=== PATIENT | female | born 1980 | race Caucasian/White ===

== ENCOUNTER 2017-05-20 15:33 | Emergency (ER) | payer OTHER ==
[~2017-05-20] VITALS: Ht 167.6 cm; Wt 75.7 kg
[~2017-05-20 15:33] MED LIST: ADDERALL 20 MG20 MG PO; ATIVAN1 MG; BUSPIRONE HCL5 MG PO; FISH OIL300 MG; GABAPENTIN100 MG PO; LAMICTAL100 MG PO; M.V.I. ADULT10 ML; METOPROLOL TART50 MG PO; alegra
[2017-05-20] MEDS ORDERED: FLECAINIDE ACE100 MG (16:02)
[2017-05-20] MEDS ORDERED: NALTREXONE HCL50 MG PO (16:02)
[2017-05-20] MEDS ORDERED: TOPIRAMATE25 MG PO (16:02)
[2017-05-20] MEDS ORDERED: VALACYCLOVIR500 MG PO (16:02)
[2017-05-20] MEDS ORDERED: LORAZEPAM0.5 MG PO (16:02)
[2017-05-20] MEDS ORDERED: ASPIR 8181 MG PO (16:02)
[2017-05-20] MEDS ORDERED: HYOSCYAMINE0.125 MG (16:02)
[2017-05-20] MEDS ORDERED: DIATRIZOATE MEGL/DIATRIZOA SOD 30 ML BTL PO ONE (17:45)
[2017-05-20 18:07] LABS: BASOPHILS % 0.3 % (0.0-1.0); EOSINOPHILS # (AUTO) 0.1 (0.0-0.4); EOSINOPHILS % 1.4 % (0.0-6.0); HEMATOCRIT 37.5 % (34.2-44.1); HEMOGLOBIN 12.6 g/dL (12.0-16.0); LYMPHOCYTES # (AUTO) 1.8 (1.0-3.2); LYMPHOCYTES % 28.6 % (18.0-39.1); MEAN CORPUSCULAR HEMOGLOBIN 30.2 pg (28-32); MEAN CORPUSCULAR HGB CONC 33.6 g/dL (31-35); MEAN CORPUSCULAR VOLUME 89.9 fL (81-99); MONOCYTES # (AUTO) 0.6 (0.2-0.8); MONOCYTES % 9.9 % (4.4-11.3); NEUTROPHILS # (AUTO) 3.8 (2.1-6.9); NEUTROPHILS % 59.5 % (38.7-80.0); PLATELET COUNT 216 x10e3/uL (140-360); RED BLOOD COUNT 4.17 x10e6/uL (3.6-5.1); RED CELL DISTRIBUTION WIDTH 13.1 % (11.7-14.4)
[2017-05-20 18:19] LABS: ALANINE AMINOTRANSFERASE 13 IU/L (0-55); ALBUMIN/GLOBULIN RATIO 1.3 (0.8-2.0); ALKALINE PHOSPHATASE 56 IU/L (40-150); BLOOD UREA NITROGEN 20 mg/dL (7-26); BUN/CREATININE RATIO 20 (6-25); CALCIUM 9.3 mg/dL (8.4-10.2); CARBON DIOXIDE 25 mmol/L (22-29); CHLORIDE 107 mmol/L (98-107); CREATININE, SERUM 0.98 mg/dL (0.57-1.11); EST GLOMERULAR FILTRATION RATE > 60 ML/MIN (60-); GLUCOSE 98 mg/dL (74-118); LIPASE 32 U/L (8-78); SODIUM 140 mmol/L (136-145)
[2017-05-20] MEDS ORDERED: IOPAMIDOL 370 MG/ML 200 ML INFUS..BTL INJ ONE (18:54)
[2017-05-20] MEDS ORDERED: SODIUM CHLORIDE 0.9% 50ML 50 ML ONE (18:54)
[2017-05-20 19:14] LABS: BILIRUBIN,URINE NEGATIVE (NEGATIVE); KETONES,URINE NEGATIVE (NEGATIVE); LEUKOCYTE ESTERASE ,URINE NEGATIVE (NEGATIVE); NITRITE,URINE NEGATIVE (NEGATIVE); PROTEIN,URINE DIPSTICK NEGATIVE (NEGATIVE); URINE UROBILINOGEN 0.2 mg/dL (0.2 - 1)
[2017-05-20 19:15] LABS: CLARITY,URINE CLEAR (CLEAR); COLOR,URINE YELLOW (YELLOW)
[2017-05-20 19:34] LABS: AMORPHOUS SEDIMENT,URINE FEW (FEW); BACTERIA,URINE FEW /HPF; EPITHELIAL CELLS,URINE FEW /LPF; RBC,URINE 0-5 /HPF (0-5); WBC,URINE (MAN) 0-5 /HPF (0-5)
--- NOTE | 2017-05-20 19:43 | Diagnostic Imaging Report ---
EXAM: CT Abdomen and Pelvis WITH contrast INDICATION: Abdominal pain COMPARISON: None. TECHNIQUE: Abdomen and pelvis were scanned utilizing a multidetector helical scanner from the lung base to the pubic symphysis after administration of IV contrast. Coronal and sagittal reformations were obtained. Routine protocol was performed. Scan was performed when during portal venous phase. IV CONTRAST: 100 mL of Isovue-370 ORAL CONTRAST: Gastrografin RADIATION DOSE: Total DLP: 07.71 mGy*cm Estimated effective dose: (DLP x 0.015 x size factor) mSv COMPLICATIONS: None FINDINGS: LINES and TUBES: None. LOWER THORAX: Unremarkable HEPATOBILIARY: No focal hepatic lesions. No biliary ductal dilation. GALLBLADDER: No radio-opaque stones or sludge. No wall thickening. SPLEEN: No splenomegaly. PANCREAS: No focal masses or ductal dilatation. ADRENALS: No adrenal nodules KIDNEYS/URETERS: Kidneys enhance symmetrically. No hydronephrosis. No cystic or solid mass lesions. 3 mm stone in the interpolar renal collecting system of the left kidney GI TRACT: No abnormal distention, wall thickening, or evidence of bowel obstruction. There are diverticula within the colon without evidence of diverticulitis. Appendix is not clearly identified. There is however no fat stranding or adenopathy in the right lower quadrant to suggest appendicitis. PELVIC ORGANS/BLADDER: The uterus is absent. Bilateral ovaries are unremarkable. The left ovary contains a peripherally enhancing hyperdense cystic lesion measuring 2.4 cm in diameter compatible with a hemorrhagic cyst or corpus luteum cyst LYMPH NODES: No lymphadenopathy. VESSELS: Unremarkable. PERITONEUM / RETROPERITONEUM: No free air or fluid. BONES: Unremarkable. SOFT TISSUES: Unremarkable. IMPRESSION: 1. Left sided nephrolithiasis measuring 3 mm in diameter without hydronephrosis. 2. Left ovarian hemorrhagic cyst versus corpus luteum cyst. Signed by: Dr. Zeb Maldonado M.D. on 05/20/2017 7:39 PM
[2017-05-20 20:35] VITALS: BP 126/95
[2017-06-07] MEDS ORDERED: ALLEGRA ALLERG180 MG PO (15:24)
[2017-06-07] MEDS ORDERED: ATIVAN1 MG PO (15:25)
[2017-06-07] MEDS ORDERED: PANTOPRAZOLE SO40 MG PO (15:27)
== END 2017-05-20 20:42 | disposition home or self-care (01) ==
LOC: ER 15:33
DX: R10.84 Generalized abdominal pain (principal); R11.2 Nausea with vomiting, unspecified; G89.29 Other chronic pain; F31.9 Bipolar disorder, unspecified
CPT/HCPCS: 36415; 74177; 80053; 81001; 83690; 85025; 87086; 99284; Q9967

== ENCOUNTER → 2017-06-08 | Day surgery (SDC) | payer OTHER ==
[~2017-06-08] MED LIST changes: +ALLEGRA ALLERG180 MG PO; +ASPIR 8181 MG PO; +ATIVAN1 MG PO; +FENTANYL CITRATE/PF 100MCG/2 ML INJ ONE; +FLECAINIDE ACE100 MG; +HYOSCYAMINE SULFATE 0.5 MG/ML AMP ONE; +HYOSCYAMINE0.125 MG; +LIDOCAINE HCL 2% LOCAL INJ 5 ML SDV VIAL INJ ONE; +LORAZEPAM0.5 MG PO; +MIDAZOLAM HCL 5 MG/ML VIAL ONE; +NALTREXONE HCL50 MG PO; +PANTOPRAZOLE SO40 MG PO; +PROPOFOL IV EMULSION 10 MG/ML 50 ML VIAL ONE; +TOPIRAMATE25 MG PO; +VALACYCLOVIR500 MG PO
--- NOTE | 2017-06-08 12:43 | Operative Report ---
DATE OF PROCEDURE: June 08, 2017 REFERRING PHYSICIAN: Dr. Alejandro Kuhn. PROCEDURE PERFORMED: 1. Esophagogastroduodenoscopy with biopsies. 2. Colonoscopy with biopsies. INDICATIONS FOR ESOPHAGOGASTRODUODENOSCOPY: Upper abdominal pain, heartburn indigestion. INDICATIONS FOR COLONOSCOPY: Lower abdominal pain, alternating bouts of constipation and diarrhea. MEDICATION: Patient was done under MAC. Please see anesthesiologist's note. PROCEDURE: With the patient in the left lateral decubitus position, the flexible fiberoptic Olympus gastroscope was introduced into the esophagus under direct visualization without any difficulty. There was some patchy erythema noted in the distal esophagus. The scope was then advanced with ease into the stomach, and the mucosa overlying the antrum and the body revealed some patchy intense erythema and low-grade to moderate edema, and biopsies were obtained and sent to stain for H. pylori. The pylorus appeared to be of normal contour and shape, was intubated with ease, and the scope was advanced all the way to the 2nd portion of the duodenum. The scope was then withdrawn slowly, and biopsies were obtained from the proximal 2nd portion to rule out sprue. The mucosa overlying the duodenal bulb appeared to be within normal limits. The scope was then withdrawn back into the stomach and retroflexed, and the mucosa overlying the fundus and the cardia appeared to be within normal limits. The scope was then straightened out. The stomach was decompressed. The scope was subsequently withdrawn. Patient tolerated the procedure well. IMPRESSION: 1. Distal esophagitis. 2. Gastritis biopsied. Biopsies sent to stain for H. pylori. 3. Rule out sprue. PLAN: Follow up histology. Increase Protonix to 40 mg 1 p.o. a.c. b.i.d. Patient was then turned around and after adequate lubrication of the anal canal, a flexible fiberoptic Olympus colonoscope was inserted into the rectum with ease and advanced all the way to the cecum. Mucosa overlying the cecum appeared to be within normal limits. The ileocecal valve was intubated, and the scope was advanced into the terminal ileum. Biopsies were obtained. The scope was then withdrawn back into the colon. It was then withdrawn slowly. The mucosa overlying the cecum, ascending and the transverse as well as the descending appeared to be within normal limits. There was some patchy intense erythema and low-grade to moderate edema noted in the sigmoid and the rectum, and random biopsies were obtained. A single diverticulum was noted in the sigmoid colon. The scope was then retroflexed into the distal rectum and small internal hemorrhoids were noted, none of which was actively bleeding. The scope was then straightened out. The rectosigmoid area as well as the distal rectal area were decompressed. The scope was subsequently withdrawn. Patient tolerated procedure well. IMPRESSION: 1. Proctosigmoiditis, mild. 2. Diverticulosis, minimal, sigmoid colon. 3. Small internal hemorrhoids, none actively bleeding. PLAN: Follow up histology. Initiate Bentyl 10 mg one p.o. t.i.d. Start VSL#3 DS one p.o. b.i.d. Job#: [id number] EV cc:ALEJANDRO KUHN DO
== END | disposition home or self-care (01) ==
LOC: OR 08:51
PROVIDERS: ATTEND Internal Medicine Gastroenterology
DX: K29.70 Gastritis, unspecified, without bleeding (principal); K63.89 Other specified diseases of intestine; K20.9 Esophagitis, unspecified; K21.9 Gastro-esophageal reflux disease without esophagitis; K59.00 Constipation, unspecified; K57.30 Diverticulosis of large intestine without perforation or abscess without bleeding; K92.0 Hematemesis; K64.8 Other hemorrhoids; R63.4 Abnormal weight loss; G47.33 Obstructive sleep apnea (adult) (pediatric); I49.9 Cardiac arrhythmia, unspecified; F90.9 Attention-deficit hyperactivity disorder, unspecified type; F31.9 Bipolar disorder, unspecified; Z01.810 Encounter for preprocedural cardiovascular examination; Z87.891 Personal history of nicotine dependence; Z79.82 Long term (current) use of aspirin; Z68.26 Body mass index [BMI] 26.0-26.9, adult; Z80.0 Family history of malignant neoplasm of digestive organs
CPT/HCPCS: 43239; 45380; 93005; J1980; J2001; J2250

== ENCOUNTER → 2017-06-23 | Outpatient (CLI) | payer OTHER ==
[~2017-06-23] MED LIST changes: -FENTANYL CITRATE/PF 100MCG/2 ML INJ ONE; -HYOSCYAMINE SULFATE 0.5 MG/ML AMP ONE; -LIDOCAINE HCL 2% LOCAL INJ 5 ML SDV VIAL INJ ONE; -MIDAZOLAM HCL 5 MG/ML VIAL ONE; -PROPOFOL IV EMULSION 10 MG/ML 50 ML VIAL ONE
--- NOTE | 2017-06-23 18:52 | Diagnostic Imaging Report ---
PROCEDURE:GALLBLADDER ULTRASOUND COMPARISON:CT chest 05/04/15 INDICATIONS:RUQ PAIN, INDIGESTION, GERD FINDINGS: Multiple sagittal and axial images were obtained of the right upper quadrant of the abdomen. The liver measures 10.4 cm. the echotexture is mildly increased. No focal masses are identified. The liver contour is within normal limits. The portal vein is patent with hepatopetal flow measuring 0.8 cm in diameter. There is no intra or extrahepatic biliary duct dilation, with the common bile duct measuring 0.3 cm. The gallbladder is normal in appearance, without evidence for gallbladder stones or sludge. There is no gallbladder wall thickening or pericholecystic fluid. The sonographic Llamas's sign is negative. Visualized pancreas parenchyma is normal in echotexture without mass or ductal dilatation. The right kidney measures 13.1 cm in length. It is of normal echogenicity, without focal masses, hydronephrosis, or shadowing renal calculi. The aorta and IVC are unremarkable. No free fluid. CONCLUSION: Increased hepatic echotexture suggestive of hepatocellular dysfunction, most commonly steatosis. No hepatic mass. The remainder of the visualized structures are normal. Dictated by: Alen Mosher M.D. on 06/23/2017 at 18:59 Electronically approved by: Alen Mosher M.D. on 06/23/2017 at 18:59
== END ==
LOC: US 15:44
PROVIDERS: ATTEND Surgery
DX: R10.11 Right upper quadrant pain (principal); K30 Functional dyspepsia; K21.9 Gastro-esophageal reflux disease without esophagitis
CPT/HCPCS: 76705

== ENCOUNTER → 2017-10-17 | Outpatient (CLI) | payer OTHER ==
[~2017-10-17] MED LIST changes: +DIATRIZOATE MEGL/DIATRIZOA SOD 30 ML BTL PO ONE; +IOPAMIDOL 370 MG/ML 200 ML INFUS..BTL INJ ONE; +SODIUM CHLORIDE 0.9% 50ML 50 ML ONE
--- NOTE | 2017-10-17 16:50 | Diagnostic Imaging Report ---
PROCEDURE: CT ABDOMEN AND PELVIS WITH CONTRAST TECHNIQUE: The abdomen and pelvis were scanned utilizing a multidetector helical scanner from the diaphragm to the lesser trochanter after the IV administration of 100 cc of Isovue 370 and the oral administration of Gastroview. Coronal and sagittal multiplanar reformations were obtained. COMPARISON: None. INDICATIONS: LOWER ABDOMINAL PAIN, has worms in stool FINDINGS: LOWER THORAX: Unremarkable HEPATOBILIARY: No focal hepatic lesions. No biliary ductal dilatation. Gallbladder is unremarkable SPLEEN: No splenomegaly. PANCREAS: No focal masses or ductal dilatation. ADRENALS: No adrenal nodules. KIDNEYS/URETERS: Mild right pelvocaliectasis without mirta hydronephrosis. No hydroureter. Stable 3 mm nonobstructing calculus in the interpolar left kidney (series 2 image 25). No ureteral calculi, hydronephrosis, or obstruction. No solid enhancing masses. PELVIC ORGANS/BLADDER: Bladder is unremarkable. Uterus is absent. No adnexal masses. PERITONEUM / RETROPERITONEUM: No free air or fluid. LYMPH NODES: No lymphadenopathy. VESSELS: Unremarkable. GI TRACT: No bowel dilation or evidence of obstruction. No pericolonic inflammatory changes. A few scattered diverticula in the sigmoid colon, without diverticulitis. No intraluminal filling defects are identified in the opacified portions of the bowel. BONES AND SOFT TISSUES: No aggressive lytic lesions. Soft tissues are grossly unremarkable. IMPRESSION: 1. No acute abdominopelvic abnormalities. Specifically, no bowel dilation or obstruction, or intraluminal filling defects in the opacified portions. 2. Mild sigmoid diverticulosis, without diverticulitis. 3. Stable 3 mm nonobstructing calculus in the interpolar left kidney. No ureteral calculi, hydronephrosis, or obstruction. Mild right pelvocaliectasis. Fernando Wright M.D. Dictated by: Fernando Wright M.D. on 10/17/2017 at 16:51 Electronically approved by: Fernando Wright M.D. on 10/17/2017 at 16:51
== END ==
LOC: CT 14:37
PROVIDERS: ATTEND Internal Medicine Gastroenterology
DX: R10.9 Unspecified abdominal pain (principal)
CPT/HCPCS: 74177; Q9967

== ENCOUNTER → 2017-12-12 | Day surgery (SDC) | payer OTHER ==
[~2017-12-12] VITALS: Ht 167.6 cm; Wt 71.7 kg
[~2017-12-12] MED LIST changes: +ATORVASTATIN CA20 MG PO; +BENTYL10 MG/1 ML IV; -DIATRIZOATE MEGL/DIATRIZOA SOD 30 ML BTL PO ONE; +DOXYCYCLINE HY100 MG PO; -IOPAMIDOL 370 MG/ML 200 ML INFUS..BTL INJ ONE; +LIDOCAINE 1% W/EPINEPHRINE 20 ML VIAL ONE; +PROBIOTIC & AC1 EACH; -SODIUM CHLORIDE 0.9% 50ML 50 ML ONE; +TOPIRAMATE100 MG PO; +TRULANCE PO; +[UNRECOGNIZED DRUG - OTHER]
[2017-12-12 12:30] VITALS: BP 125/86
[2017-12-12 15:52] VITALS: BP 113/80
--- NOTE | 2017-12-12 16:28 | Operative Report ---
DATE OF PROCEDURE: December 12, 2017 INDICATIONS: Palpitations with possible atrial fibrillation. PROCEDURES PERFORMED: Insertable LINQ recorder. Left anterior chest was anesthetized using subcutaneous lidocaine. A Certess LINQ, serial number [id number], was inserted without complications. Skin approximated using Dermabond. Patient discharged home same day. No complications. Job#: [id number] EV
== END | disposition home or self-care (01) ==
LOC: CATH LAB 11:40
PROVIDERS: ATTEND Internal Medicine Interventional Cardiology
DX: R00.2 Palpitations (principal); Z79.82 Long term (current) use of aspirin
CPT/HCPCS: 33282; C1764

== ENCOUNTER 2018-05-08 20:12 | Emergency (ER) | payer BC, OTHER ==
[~2018-05-08] VITALS: Ht 167.6 cm; Wt 71.7 kg
[~2018-05-08 20:12] MED LIST changes: -LIDOCAINE 1% W/EPINEPHRINE 20 ML VIAL ONE
--- OUTSIDE RECORDS SUMMARY | 2018-05-08 20:15 | XMS REPORT | Clinical Summary ---
Author Author [facility] Organization [facility] Address Unknown Phone Unavailable Care Team Providers Care Scrap Sorter Name Role Phone Cody Stallworth MD PCP Allergies Comments Active Allergy Reactions Severity Noted Date Latex 01/19/2017 Medications End Date Status Medication Sig Dispensed Refills Start Date Active dextroamphetamine-ampheta Take 30 mg by 0 mine (ADDERALL) 30 mg mouth 2 (two) tablet times a day. Active flecainide (TAMBOCOR) 100 Take 100 mg 0 MG tablet by mouth 2 (two) times a day. Active lamoTRIgine (LaMICtal XR) Take 300 mg 0 300 mg tablet extended by mouth release 24hr daily. Active LORAZepam (ATIVAN) 0.5 MG Take 0.5 mg 0 tablet by mouth 2 (two) times a day. Active gabapentin (NEURONTIN) Take 300 mg 0 300 mg capsule by mouth daily. Active fexofenadine (EVAN) Take 180 mg 0 180 MG tablet by mouth daily. Active DOCOSAHEXANOIC ACID/EPA Take 1,200 mg 0 (FISH OIL ORAL) by mouth 2 (two) times a day. Active busPIRone (BUSPAR) 10 MG Take 10 mg by 0 tablet mouth 2 (two) times a day. Active metoprolol tartrate Take 25 mg by 0 (LOPRESSOR) 25 mg tablet mouth daily. Active aspirin (ECOTRIN) 81 MG Take 81 mg by 0 enteric coated tablet mouth daily. Active topiramate (TOPAMAX) 25 Take 25 mg by 0 MG tablet mouth 2 (two) times a day. Active acetylcysteine (NAC) 600 Take 600 mg 0 mg capsule by mouth 2 (two) times a day. Active valACYclovir (VALTREX) Take 500 mg 0 500 MG tablet by mouth as needed. Active MULTIVIT WITH Take by 0 CALCIUM,IRON,MIN (WOMEN'S mouth. DAILY MULTIVITAMIN ORAL) Active Problems Not on file Family History Medical History Relation Name Comments No Known Problems Brother No Known Problems Father No Known Problems Maternal Aunt Pancreatitis Maternal Grandfather No Known Problems Maternal Grandmother No Known Problems Maternal Uncle No Known Problems Mother No Known Problems Paternal Aunt Colon cancer Paternal Grandfather No Known Problems Paternal Grandmother No Known Problems Paternal Uncle No Known Problems Sister Diverticulitis Neg Hx Diverticulosis Neg Hx Relation Name Status Comments Brother Father Maternal Aunt Maternal Grandfather Maternal Grandmother Maternal Uncle Mother Paternal Aunt Paternal Grandfather Paternal Grandmother Paternal Uncle Sister Social History Date Tobacco Use Types Packs/Day Years Used Quit: 2012 Former Smoker Alcohol Use Drinks/Week oz/Week Comments No Sex Assigned at Date Recorded Not on file Industry Job Start Date Occupation Not on file Not on file Not on file Travel End Travel History Travel Start No recent travel history available. Last Filed Vital Signs Not on file Plan of Treatment Health Maintenance Due Date Last Done Comments MMR VACCINES (1982 Standard series) VARICELLA VACCINES (1994 2 - 2-dose adolescent series) CERVICAL CANCER SCREENING 2002 INFLUENZA VACCINE 01/17/2018 HEPATITIS B VACCINES Aged Out No longer eligible based on patient's age to complete this topic IPV VACCINES Aged Out No longer eligible based on patient's age to complete this topic MENINGOCOCCAL VACCINE Aged Out No longer eligible based on patient's age to complete this topic Results Not on fileafter 05/07/2017 Insurance Payer Benefit Subscriber ID Type Phone Address Plan / Group AETNA AETNA PPO xxxxxxxxxx PPO OPEN CHOICE Advance Directives Patient has advance care planning documents on file. For more information, akash sanchez contact: Chun Billingsley [address] [place] [address]
--- NOTE | 2018-05-08 22:13 | Diagnostic Imaging Report ---
ANKLE 3+ VIEWS LEFT HISTORY: Pain. Hit ankle 2 days ago. COMPARISON: None available. FINDINGS: Bones: No acute displaced fracture. Osseous alignment is within normal limits. Joints: The joint spaces are well-maintained. Soft tissues: The soft tissues appear unremarkable. IMPRESSION: No acute radiographic abnormality. Signed by: DR. Caesar Garcia MD on 05/08/2018 10:09 PM
[2018-05-08 22:50] VITALS: BP 119/87
== END 2018-05-08 22:54 | disposition home or self-care (01) ==
LOC: ER 20:12
DX: M25.472 Effusion, left ankle (principal); M25.572 Pain in left ankle and joints of left foot; W22.09XA Striking against other stationary object, initial encounter; Y92.003 Bedroom of unspecified non-institutional (private) residence as the place of occurrence of the external cause; F41.9 Anxiety disorder, unspecified; F31.9 Bipolar disorder, unspecified; Z86.73 Personal history of transient ischemic attack (TIA), and cerebral infarction without residual deficits
CPT/HCPCS: 93971; 99283

== ENCOUNTER → 2018-12-04 | Outpatient (CLI) | payer BC ==
[~2018-12-04] MED LIST changes: +IOPAMIDOL 370 MG/ML 200 ML INFUS..BTL INJ ONE; +SODIUM CHLORIDE 0.9% 50ML 50 ML ONE
[2018-12-04 17:45] LABS: BLOOD UREA NITROGEN 16 mg/dL (7-26); BUN/CREATININE RATIO 18 (6-25); CREATININE, SERUM 0.88 mg/dL (0.57-1.11); EST GLOMERULAR FILTRATION RATE > 60 ML/MIN (60-)
--- NOTE | 2018-12-04 18:27 | Diagnostic Imaging Report ---
CT chest pulmonary embolism protocol CPT code: 17965 INDICATION: Shortness of breath. Lower left chest pain ^[id number] ^[id number] ^SOB TECHNIQUE: Thin collimation axial images obtained through the level of the pulmonary arteries with additional imaging through the chest following the uneventful administration of 100 cc of low osmolar, nonionic intravenous contrast. Images reconstructed into coronal and sagittal MIPs for complete evaluation of the tortuous and overlapping pulmonary vascular structures and to reduce patient radiation dose. RADIATION DOSE: Total DLP: 551.4 mGy*cm Estimated effective dose: (DLP x 0.015 x size factor) mSv CTDIvol has been reviewed. It is below the limits set by the Radiation Protocol Committee (RPC). Dose reduction techniques used: Automated exposure control, adjustment of the mAs and/or kVp according to patient size, standardized low-dose protocol, and/or iterative reconstruction technique. COMPARISON: None. FINDINGS: Pulmonary artery: No filling defects are appreciated within the main, left, right, lobar or visualized segmental pulmonary arteries to suggest embolism. Aorta: The thoracic aorta is not aneurysmal. No evidence for dissection. Lymph nodes: No lymphadenopathy. Thyroid: Normal in size without mass in the visualized parenchyma.. Mediastinum: The heart is normal in size. No pericardial effusion. The esophagus is normal. Lungs: Right Lung: No mass or infiltrate. Left Lung: No mass or infiltrate. Trace focus of atelectasis in the posterior costophrenic angle. Airways: Clear Pleura: No pleural effusion or pleural based mass. Abdomen: Visualized portions demonstrate no evidence of mass or lymphadenopathy. There is a nonobstructing calculus in the upper pole of the left kidney measuring 6 mm. Bones: No focal osseous lesions. Soft tissues: Loop recorder device in the anterior left chest. IMPRESSION: 1. No evidence of pulmonary embolus or aortic dissection. 2. Trace amount of atelectasis in the left posterior costophrenic angle. Otherwise the lungs are normal. 3. Non-obstructive left intrarenal calculus. Findings given to VAL Napoles at the time of dictation. Confirmed. Signed by: Dr. Alen Mosher MD on 12/04/2018 6:23 PM
== END ==
LOC: CT 16:52
PROVIDERS: ATTEND Family Medicine
DX: R06.02 Shortness of breath (principal)
CPT/HCPCS: 36415; 71260; 82565; 84520; Q9967

== ENCOUNTER → 2023-10-13 | Outpatient (REF) | payer BC ==
[~2023-10-13] MED LIST changes: -IOPAMIDOL 370 MG/ML 200 ML INFUS..BTL INJ ONE; -SODIUM CHLORIDE 0.9% 50ML 50 ML ONE
== END ==
LOC: CT 15:39
PROVIDERS: ATTEND Family Medicine
DX: R10.9 Unspecified abdominal pain (principal); R79.89 Other specified abnormal findings of blood chemistry
CPT/HCPCS: 74176

== ENCOUNTER → 2024-04-25 | Outpatient (REF) | payer BC | LOC: US 14:08 | PROVIDERS: ATTEND Family Medicine | DX: R94.6 Abnormal results of thyroid function studies (principal) | CPT/HCPCS: 76536 ==